=== PATIENT | male | born 1995 | race Caucasian/White ===

== ENCOUNTER 2019-12-15 14:47 | Emergency (ER) | payer SELFPAY ==
[2019-12-15 14:53] VITALS: BP 126/50; PULSE 74; TEMP 98.4; BMI 23.4
[2019-12-15] MEDS ORDERED: SODIUM CHLORIDE 1,000 ML IV STA (14:56)
--- NOTE | 2019-12-15 14:56 | PDOC ---
Rapid Medical Evaluation Chief Complaint: Diarrhea Time Seen by Provider: 12/15/19 14:52 Medical Evaluation: 12/15/19 14:52 I performed a brief in-person evaluation of this patient. Healthy 24-year-old male with three days of watery diarrhea, > 5 episodes daily. No blood in stool, some when wiping. No fevers. Nausea without vomiting. No recent travel. Lactose intolerant, ate pizza prior to onset of symptoms. Pertinent physical exam findings: Alert, oriented, no distress. No abdominal tenderness even to deep palpation. I have ordered the following: CBC, CMP, Mg, fluids Patient to proceed to the ED for further evaluation: Discharge Disposition - Diagnosis Diarrhea - Discharge Dispostion Condition at time of disposition: Stable - Referrals - Patient Instructions - Post Discharge Activity
[2019-12-15 15:17] LABS: BASO % 0.9 % (0-2.0); EOS % 0.3 % (0-4.5); HEMATOCRIT 45.4 % (35.4-49); HEMOGLOBIN 15.3 GM/dL (11.7-16.9); LYMPH % 17.5 % (8-40); MCH 29.8 pg (25.7-33.7); MCHC 33.8 g/dl (32.0-35.9); MEAN CELL VOLUME 88.4 fl (80-96); MEAN PLT VOLUME 7.3 fl (7.5-11.1); MONO % 14.2 % (3.8-10.2); NEUT % 67.1 % (42.8-82.8); PLATELET COUNT 235 K/MM3 (134-434); RBC 5.14 M/mm3 (4.00-5.60); RDW 14.5 % (11.9-15.9); WHITE BLOOD COUNT 4.3 K/mm3 (4.0-10.0)
[2019-12-15 15:43] LABS: BILIRUBIN,TOTAL 0.6 mg/dL (0.2-1); BLOOD UREA NITROGEN 12.6 mg/dL (7-18); CREATININE 1.2 mg/dL (0.55-1.3); MAGNESIUM 2.1 mg/dL (1.8-2.4); POTASSIUM 3.8 mmol/L (3.5-5.1); TOT PROT 7.2 g/dl (6.4-8.2)
--- NOTE | 2019-12-15 16:56 | PDOC ---
History of Present Illness - General Chief Complaint: Diarrhea Stated Complaint: DIARRHEA/NAUSEA Time Seen by Provider: 12/15/19 14:52 History Source: Patient Exam Limitations: No Limitations Past History - Past Medical History Allergies/Adverse Reactions: Allergies Allergy/AdvReac Type Severity Reaction Status Date / Time No Known Allergies Allergy Verified 12/15/19 14:53 Home Medications: Ambulatory Orders NK [No Known Home Medication] 12/15/19 COPD: No - Immunization History Immunization Up to Date: No - Psycho Social/Smoking Cessation Hx Smoking History: Never smoked Have you smoked in the past 12 months: No Information on smoking cessation initiated: No Hx Alcohol Use: Yes Drug/Substance Use Hx: Yes *Physical Exam - Vital Signs Last Vital Signs Temp Pulse Resp BP Pulse Ox 98.4 F 74 18 126/50 L 97 12/15/19 14:50 12/15/19 14:50 12/15/19 14:50 12/15/19 14:50 12/15/19 14:50 - Physical Exam General Appearance: No: Apparent Distress Respiratory/Chest: positive: Lungs Clear, Normal Breath Sounds. negative: Respiratory Distress Cardiovascular: positive: Regular Rhythm, Regular Rate, S1, S2. negative: Murmur Gastrointestinal/Abdominal: positive: Normal Bowel Sounds, Soft. negative: Tender, Distended, Guarding, Rebound Integumentary: positive: Normal Color Neurologic: positive: Alert ED Treatment Course - LABORATORY CBC & Chemistry Diagram: 12/15/19 15:00 12/15/19 15:00 - ADDITIONAL ORDERS Additional order review: Laboratory Results 12/15/19 15:00 Sodium 138 Potassium 3.8 Chloride 106 Carbon Dioxide 26 Anion Gap 6 L BUN 12.6 Creatinine 1.2 Est GFR (CKD-EPI)AfAm 98.89 Est GFR (CKD-EPI)NonAf 85.32 Random Glucose 84 Calcium 9.0 Magnesium 2.1 Total Bilirubin 0.6 AST 21 ALT 34 Alkaline Phosphatase 95 Total Protein 7.2 Albumin 4.0 12/15/19 15:00 RBC 5.14 MCV 88.4 MCHC 33.8 RDW 14.5 MPV 7.3 L Neutrophils % 67.1 Lymphocytes % 17.5 Monocytes % 14.2 H Eosinophils % 0.3 Basophils % 0.9 - Medications Given in the ED: ED Medications Discontinued Medications Generic Name Dose Route Start Last Admin Trade Name Freq PRN Reason Stop Dose Admin Sodium Chloride 1,000 mls @ 1,000 mls/hr 12/15/19 14:56 12/15/19 15:55 Normal Saline - IV 12/15/19 15:55 1,000 mls/hr ASDIR STA Administration Medical Decision Making - Medical Decision Making 24 y/o M with no sig pmh presents with watery diarrhea x 3 days (>5 stools/day) . Mentions eating pizza this weekend though he is lactose intolerant. Denies fever, sob, cp, abd pain, n/v, bloody stools, recent travel, use of abx, recent camping/hiking. States he took 1 Imodium yesterday and 1 today. Surgical hx of appendectomy. Patient well appearing, afebrile Labs unremarkable Could be gastroenteritis or related to lactose intolerance Not concerned for infectious diarrhea Proper dosing of imodium discussed stable for dc 12/15/19 16:50 Discharge - Discharge Information Problems reviewed: Yes Clinical Impression/Diagnosis: Diarrhea Qualifiers: Diarrhea type: unspecified type Qualified Code(s): R19.7 - Diarrhea, unspecified Condition: Stable Disposition: HOME - Admission No - Additional Discharge Information Prescription Drug Monitoring Program (I-STOP) results: I-STOP not reviewed - Follow up/Referral - Patient Discharge Instructions Patient Printed Discharge Instructions: DI for Viral Gastroenteritis -- Adult Additional Instructions: Thank you for choosing [facility]. It was a pleasure taking care of you. Drink 3-4L of water daily You may use Imodium but do not use for more than 2 days. Use 2 mg after each loose stool (do not use more than 16 mg a day) Follow-up with primary care doctor in 2-3 days Return to the Emergency Department if your symptoms worsen or persist, you have fever, severe abdominal pain, vomiting or other concerning symptoms. - Post Discharge Activity
== END 2019-12-15 17:59 | disposition home or self-care (01) ==
LOC: JER 14:47
PROC: 3E0337Z Introduction of Electrolytic and Water Balance Substance into Peripheral Vein, Percutaneous Approach (ICD-10-PCS; principal; 2019-12-15)
DX: R19.7 Diarrhea, unspecified (principal); E73.9 Lactose intolerance, unspecified
CPT/HCPCS: 36415; 80053; 83735; 85025; 99282-25; J7030